=== PATIENT | female | born 1940 | race Caucasian/White ===

== ENCOUNTER → 2020-10-19 15:18 | Outpatient (CLI) | payer MEDICARE, SELFPAY ==
[2020-10-19 16:31] LABS: Vitamin B12 837 pg/mL (211-911)
[2020-10-19 16:40] LABS: Ferritin 282 ng/mL (8-252); Iron 67 ug/dL (50-170); Iron Binding Capacity,Total 248 ug/dL (250-450)
== END ==
PROVIDERS: PCP Student in an Organized Health Care Education/Training Program; Referring Provider Internal Medicine Hematology & Oncology; Visit Provider Internal Medicine Hematology & Oncology
DX: L12.0 Bullous pemphigoid (principal); D63.8 Anemia in other chronic diseases classified elsewhere
CPT/HCPCS: 82607; 82728; 82746; 83540; 83550